=== PATIENT | male | born 1995 | race Hispanic/Latino ===

== ENCOUNTER 2018-01-30 00:03 | Emergency (ER) | payer OTHER ==
--- NOTE | 2018-01-30 00:25 | ED PDOC ---
Arrival/HPI - General Chief Complaint: Chest Pain Time Seen by Provider: 01/30/18 00:20 Historian: Patient - History of Present Illness Narrative History of Present Illness (Text): 01/30/18 00:21 A 22 year old male, with no significant past medical history, presents to the emergency department with a complaint of acute onset substernal, sharp, burning chest discomfort. The patient also notes that his symptoms are associated with tingling sensation in his hands and feeling like he could not catch his breath. He notes that he has had similar episodes in the past without any stimulus. Today's episode occurred while he was at work. He denies fevers, chills, headache, dizziness, dyspnea on exertion, cough, abdominal pain, nausea, vomiting, diarrhea, back pain, neck pain, urinary/bowel changes, illicit drug/ alcohol use, or any other complaint. Time/Duration: 1-3 hours Symptom Onset: Sudden Symptom Course: Unchanged Activities at Onset: Rest, Light Context: Work Past Medical History - Provider Review Nursing Documentation Reviewed: Yes - Infectious Disease Hx of Infectious Diseases: None - Psychiatric Hx Substance Use: No - Anesthesia Hx Anesthesia: No Family/Social History - Physician Review Nursing Documentation Reviewed: Yes Family/Social History: No Known Family HX Smoking Status: Smoker Currrent Status Unknown Hx Alcohol Use: Yes Frequency of alcohol use: Socially Hx Substance Use: No Allergies/Home Meds Allergies/Adverse Reactions: Allergies No Known Allergies Allergy (Verified 01/30/18 00:10) Review of Systems - Physician Review All systems were reviewed & negative as marked: Yes - Review of Systems Constitutional: absent: Fevers, Night Sweats Respiratory: SOB. absent: Cough Cardiovascular: Chest Pain (Sub-sternal chest discomfort). absent: CHRISTIE Gastrointestinal: absent: Abdominal Pain, Stool Changes, Diarrhea, Nausea, Vomiting Genitourinary Male: absent: Frequency, Hematuria Musculoskeletal: absent: Back Pain, Neck Pain Neurological: Other (Hands tingling ). absent: Headache, Dizziness Physical Exam Vital Signs Reviewed: Yes Vital Signs Temp Pulse Resp BP Pulse Ox 01/30/18 02:08 85 18 128/72 100 01/30/18 00:10 97.6 F 88 18 130/74 97 Temperature: Afebrile Blood Pressure: Normal Pulse: Regular Respiratory Rate: Normal Appearance: Positive for: Well-Appearing, Non-Toxic, Comfortable Pain Distress: None Mental Status: Positive for: Alert and Oriented X 3, other (Anxious) - Systems Exam Head: Present: Atraumatic, Normocephalic Pupils: Present: PERRL Extroacular Muscles: Present: EOMI Conjunctiva: Present: Normal Mouth: Present: Moist Mucous Membranes Neck: Present: Normal Range of Motion Respiratory/Chest: Present: Clear to Auscultation, Good Air Exchange, Tender to Palpation (mild chest wall tenderness). No: Respiratory Distress, Accessory Muscle Use Cardiovascular: Present: Regular Rate and Rhythm, Normal S1, S2. No: Murmurs Abdomen: No: Tenderness, Distention, Peritoneal Signs Back: Present: Normal Inspection Upper Extremity: Present: Normal Inspection. No: Cyanosis, Edema Lower Extremity: Present: Normal Inspection. No: Edema Neurological: Present: GCS=15, CN II-XII Intact, Speech Normal Skin: Present: Warm, Dry, Normal Color. No: Rashes Psychiatric: Present: Alert, Oriented x 3, Normal Insight, Normal Concentration Medical Decision Making ED Course and Treatment: 01/30/18 00:31 Impression: A 22 year old male presents to the emergency department for a complaint of substernal chest discomfort and difficulty catching his breath this evening. Plan: -- EKG -- Chest X-ray -- Urinalysis -- Labs -- Reassess and disposition Progress Notes: EKG: Ordered, reviewed, and independently interpreted the EKG. Rate : 85 BPM Rhythm : NSR Interpretation : Early repolarization. Precordial leads in v3-v6, and lead II and AVF. 01/30/18 01:45: Chest X-ray read and interpreted by me shows clear lining, cardiac silhouette within normal limits. No acute pulmonary pathology. On re-evaluation, patient feels better and is in no acute distress. I have discussed the results and plan with the patient, who expresses understanding. Patient in agreement with plan to be discharged home. Patient is stable for discharge. Patient was instructed to follow up with physician or return if symptoms worsen or new concerning symptoms arise. - Lab Interpretations Lab Results: 01/30/18 00:35 01/30/18 00:35 Lab Results 01/30/18 00:50: Urine Opiates Screen Negative, Urine Methadone Screen Negative, Ur Barbiturates Screen Negative, Ur Phencyclidine Scrn Negative, Ur Amphetamines Screen Negative, U Benzodiazepines Scrn Negative, U Oth Cocaine Metabols Negative, U Cannabinoids Screen Negative 01/30/18 00:50: Urine Color Light yellow, Urine Appearance Clear, Urine pH 7.5, Ur Specific [place] 1.010, Urine Protein Trace H, Urine Glucose (UA) Negative, Urine Ketones Trace H, Urine Blood Negative, Urine Nitrate Negative, Urine Bilirubin Negative, Urine Urobilinogen 1.0 H, Ur Leukocyte Esterase Negative, Urine RBC 1 - 3, Urine WBC 0 - 2, Ur Epithelial Cells 1 - 3, Urine Bacteria Mod 01/30/18 00:35: Sodium 142, Potassium 3.9, Chloride 104, Carbon Dioxide 26, Anion Gap 16, BUN 14, Creatinine 1.0, Est GFR ( Amer) > 60, Est GFR (Non- Af Amer) > 60, Random Glucose 108, Calcium 9.7, Magnesium 2.1, Total Bilirubin 0.6, AST 24, ALT 29, Alkaline Phosphatase 72, Lactate Dehydrogenase 354, Total Creatine Kinase 270 H, CK-MB (CK-2) 0.5, CK-MB (CK-2) % Cancelled, Troponin I < 0.01, Total Protein 7.3, Albumin 4.6, Globulin 2.7, Albumin/Globulin Ratio 1.7 01/30/18 00:35: WBC 8.2, RBC 5.29, Hgb 16.4, Hct 45.5, MCV 86.0, MCH 31.0, MCHC 36.0, RDW 13.0, Plt Count 233, MPV 9.6, Gran % 69.0 H, Lymph % (Auto) 24.2, [place] % (Auto) 6.3 H, Eos % (Auto) 0.4 L, Baso % (Auto) 0.1, Gran # 5.65, Lymph # (Auto) 2.0, [place] # (Auto) 0.5, Eos # (Auto) 0.0, Baso # (Auto) 0.01 I have reviewed the lab results: Yes - RAD Interpretation Radiology Orders: 01/30/18 00:21 CHEST PORTABLE [RAD] Stat - EKG Interpretation Interpreted by ED Physician: Yes Type: 12 lead EKG - Medication Orders Current Medication Orders: Discontinued Medications Alprazolam (Xanax) 0.25 mg PO STAT STA PRN Reason: Protocol Stop: 01/30/18 00:37 Last Admin: 01/30/18 01:08 Dose: 0.25 mg - Rupertoibe Statement The provider has reviewed the documentation as recorded by the Anthony Whaley Provider Anthony Attestation: All medical record entries made by the Rupertoibneno were at my direction and personally dictated by me. I have reviewed the chart and agree that the record accurately reflects my personal performance of the history, physical exam, medical decision making, and the department course for this patient. I have also personally directed, reviewed, and agree with the discharge instructions and disposition. Disposition/Present on Arrival - Present on Arrival Any Indicators Present on Arrival: No History of DVT/PE: No History of Uncontrolled Diabetes: No Urinary Catheter: No History of Decub. Ulcer: No History Surgical Site Infection Following: None - Disposition Have Diagnosis and Disposition been Completed?: Yes Diagnosis: Anxiety, Chest pain Disposition: HOME/ ROUTINE Disposition Time: 06:53 Patient Plan: Discharge Condition: GOOD Discharge Instructions (ExitCare): Chest Pain That Is Not Caused by the Heart ( DC), Anxiety, Adult (DC), Chest Pain (ED) Prescriptions: ALPRAZolam [Xanax] 0.25 mg PO TID PRN #15 tab PRN Reason: Anxiety Forms: [facility] [facility] ([place]atian)
[2018-01-30 00:29] VITALS: RESP 18; TEMP 97.6
[2018-01-30 00:59] LABS: BASO # 0.01 K/mm3 (0.0-2.0); BASO % 0.1 % (0.0-3.0); EOS % 0.4 % (1.5-5.0); GRAN # 5.65 (1.4-6.5); HEMOGLOBIN 16.4 g/dL (14.0-18.0); LYMPH % 24.2 % (22.0-35.0); MEAN PLATELET VOLUME 9.6 fl (7.0-11.0); MONO # 0.5 (0.1-0.6); MONO % 6.3 % (1.0-6.0); RBC 5.29 10^6/uL (3.5-6.1); WHITE BLOOD COUNT 8.2 10^3/ul (4.5-11.0)
[2018-01-30 01:08] LABS: ALB/GLOB RATIO 1.7 (1.1-1.8); ALBUMIN 4.6 g/dL (3.0-4.8); ALT/SGPT 29 U/L (7-56); AST/SGOT 24 U/L (17-59); BLOOD UREA NITROGEN 14 mg/dL (7-21); CALCIUM 9.7 mg/dL (8.4-10.5); GFR AFRICAN-AMERICAN > 60; GFR NON-AFRICAN AMERICAN > 60
[2018-01-30 01:17] LABS: TROPONIN I < 0.01 ng/mL
[2018-01-30 01:28] LABS: CK-MB 0.5 ng/mL (0.0-3.6)
[2018-01-30 01:31] LABS: PH,URINE 7.5 (4.7-8.0); URINE BILIRUBIN NEGATIVE (NEGATIVE); URINE BLOOD NEGATIVE (NEGATIVE); URINE GLUCOSE (UA) NEGATIVE (NEGATIVE); URINE LEUKOCYTE ESTERASE NEGATIVE Leu/uL (NEGATIVE); URINE PROTEIN TRACE mg/dL (<30 mg/dL)
[2018-01-30 01:47] LABS: BARBITURATES, UR NEGATIVE (NEGATIVE); BENZODIAZEPINES, UR NEGATIVE (NEGATIVE); OPIATES, UR NEGATIVE (NEGATIVE); PHENCYCLIDINE, UR NEGATIVE (NEGATIVE)
[2018-01-30 01:51] LABS: URINE APPEARANCE CLEAR (CLEAR); URINE COLOR LIGHT YELLOW (YELLOW)
[2018-01-30 01:52] LABS: URINE BACTERIA MOD (NEG); URINE WBC 0 - 2 /hpf (0-6)
[2018-01-30 02:18] VITALS: BP 128/72; PULSE 85; O2SAT 100
--- NOTE | 2018-01-30 09:18 | RAD ---
HISTORY: Chest pain. Abort ugarte COMPARISON: No prior. FINDINGS: LUNGS: No active pulmonary disease. PLEURA: No significant pleural effusion identified, no pneumothorax apparent. CARDIOVASCULAR: Normal. OSSEOUS STRUCTURES: No significant abnormalities. VISUALIZED UPPER ABDOMEN: Normal. OTHER FINDINGS: None. IMPRESSION: No active disease.
--- NOTE | 2018-01-30 22:47 | CARD ---
APPROVED REPORT EKG Measurement Heart [id number] <Conclusion> Normal sinus rhythm Early repolarization Normal ECG
== END 2018-01-30 02:08 | disposition home or self-care (01) ==
LOC: ED 00:03
DX: R07.9 Chest pain, unspecified (principal); F41.9 Anxiety disorder, unspecified

== ENCOUNTER 2018-05-23 22:58 | Emergency (ER) | payer OTHER ==
[2018-05-23 23:03] VITALS: BMI 22.8
[2018-05-23 23:06] VITALS: O2SAT 100
--- NOTE | 2018-05-23 23:37 | ED PDOC ---
Arrival/HPI <You Botello - Last Filed: 05/24/18 00:07> - General Historian: Patient - History of Present Illness Narrative History of Present Illness (Text): 05/23/18 23:34 23yr old male presents today with sudden onset of left sided chest pain radiating into the left shoulder. pt denies trauma or injury. pt states pain started while at a meeting. pt states the pain is achy and constant and radiating into the left shoulder. pt states pain is worse with movement of the left shoulder. pt states when symptoms started the patient was feeling nauseous. pt denies abdominal pain. no vomiting. pt denies back pain. pt states he goes to the gym, last time was 1 week ago. pt denies drug use. pt denies family hx of CA at early age. no cough. pt states a few days ago he got the same pain and was associated with SOB. pt states those symptoms quickly went away but returned again today. pt states he has hx of panic attacks. pt states he think this is a panic attack. pt states he doesnt have shortness of breath, but worsening pain with deep inspiration. no recent travel. no other complaints. <Shayla Knox - Last Filed: 05/24/18 00:38> - General Chief Complaint: Chest Pain Time Seen by Provider: 05/23/18 23:07 Past Medical History - Provider Review Nursing Documentation Reviewed: Yes - Travel History Have you recently traveled outside [place] w/in the past 3 mons?: No - Infectious Disease Hx of Infectious Diseases: None - Psychiatric Hx Substance Use: No - Anesthesia Hx Anesthesia: No <Shayla Knox - Last Filed: 05/24/18 00:38> Family/Social History - Physician Review Nursing Documentation Reviewed: Yes Family/Social History: No Known Family HX. denies: Hypertension, CAD/CA Smoking Status: Smoker Currrent Status Unknown Hx Alcohol Use: Yes Hx Substance Use: No <Shayla Knox - Last Filed: 05/24/18 00:38> Allergies/Home Meds <You Botello - Last Filed: 05/24/18 00:07> <Shayla Knox - Last Filed: 05/24/18 00:38> Allergies/Adverse Reactions: Allergies No Known Allergies Allergy (Verified 05/23/18 23:03) Review of Systems - Review of Systems Constitutional: absent: Fatigue, Fevers Respiratory: SOB. absent: Cough Cardiovascular: Chest Pain. absent: Palpitations Gastrointestinal: absent: Abdominal Pain, Nausea, Vomiting Genitourinary Male: absent: Dysuria, Frequency, Hematuria, Urinary Output Changes Musculoskeletal: Arthralgias (left shoulder pain). absent: Back Pain, Neck Pain Skin: absent: Rash, Pruritis Neurological: absent: Headache, Dizziness Psychiatric: absent: Anxiety, Depression <Shayla Knox - Last Filed: 05/24/18 00:38> Physical Exam Vital Signs Temp Pulse Resp BP Pulse Ox 05/23/18 23:03 98.2 F 76 18 125/74 100 <You Botello - Last Filed: 05/24/18 00:07> Vital Signs Reviewed: Yes Vital Signs Temp Pulse Resp BP Pulse Ox 05/23/18 23:03 98.2 F 76 18 125/74 100 Temperature: Afebrile Blood Pressure: Normal Pulse: Regular Respiratory Rate: Normal Appearance: Positive for: Well-Appearing, Non-Toxic, Comfortable Pain Distress: None Mental Status: Positive for: Alert and Oriented X 3 - Systems Exam Head: Present: Atraumatic Mouth: Present: Moist Mucous Membranes Neck: Present: Normal Range of Motion Respiratory/Chest: Present: Clear to Auscultation, Good Air Exchange, Tender to Palpation (+ minimal ttp over left pectoralis muscle.). No: Respiratory Distress, Accessory Muscle Use Cardiovascular: Present: Regular Rate and Rhythm, Normal S1, S2. No: Murmurs Abdomen: No: Tenderness, Distention, Rebound, Guarding Back: Present: Normal Inspection. No: Midline Tenderness, Paraspinal Tenderness Upper Extremity: Present: Normal ROM Lower Extremity: Present: Normal ROM. No: Edema, CALF TENDERNESS Neurological: Present: GCS=15, Speech Normal Skin: Present: Warm, Dry, Normal Color. No: Rashes Psychiatric: Present: Alert, Oriented x 3 <Shayla Knox - Last Filed: 05/24/18 00:38> Medical Decision Making - Lab Interpretations Lab Results: 05/23/18 23:28 05/23/18 23:28 Lab Results 05/23/18 23:28: Sodium 139, Potassium 3.8, Chloride 103, Carbon Dioxide 25, Anion Gap 14, BUN 18, Creatinine 1.0, Est GFR ( Amer) > 60, Est GFR (Non- Af Amer) > 60, Random Glucose 110, Calcium 9.6, Magnesium 1.9, Total Bilirubin 0.5, AST 46, ALT 26, Alkaline Phosphatase 66, Lactate Dehydrogenase 506, Total Creatine Kinase 142, Troponin I Pending, Total Protein 7.7, Albumin 4.6, Globul in 3.2, Albumin/Globulin Ratio 1.4 05/23/18 23:28: PT 12.5, INR 1.09, APTT 26.8, D-Dimer, Quantitative < 200 05/23/18 23:28: WBC 10.4 D, RBC 5.17, Hgb 15.8, Hct 45.5, MCV 88.0, MCH 30.6, MCHC 34.7, RDW 13.1, Plt Count 228, MPV 9.7, Gran % 63.3, Lymph % (Auto) 27.7, [place] % (Auto) 4.8, Eos % (Auto) 4.1, Baso % (Auto) 0.1, Gran # 6.59 H, Lymph # (Auto) 2.9, [place] # (Auto) 0.5, Eos # (Auto) 0.4, Baso # (Auto) 0.01 - RAD Interpretation Radiology Orders: 05/23/18 23:08 CHEST PORTABLE [RAD] Stat - Medication Orders Current Medication Orders: Discontinued Medications Famotidine (Pepcid) 20 mg IVP STAT STA Stop: 05/23/18 23:34 Ketorolac Tromethamine (Toradol) 30 mg IVP STAT STA Stop: 05/23/18 23:34 <You Botello - Last Filed: 05/24/18 00:07> ED Course and Treatment: 05/23/18 23:38 pt with chest pain ; vitals stable pt with palpable left sided chest tenderness; worse with ROM of shoulder. cbc; wnl cmp; wnl ddimer; wnl trop: wnl ekg; sinus rhythm with 1st degree av block, early repolarization. qtc 389 cxr: wnl pt reassessment; pt states pain as resolved prior to medications being given. toradol and pepcid cancelled. i discussed all results in depth with patient. i advised f/u with PMd and pulpwood contractor within the next 2 days. I advised immediate return if symptoms worsen,persist or if new symptoms develop. pt was advised to quit smoking. Patient verbalizes understanding of discharge instructions and need for immediate followup. all aspects of this case were discussed the attending of record. impression; chest pain motrin every 6 hours as needed for pain follow up with the primary care physician tomorrow follow up with the pulpwood contractor within the next 2 days. return if symptoms worsen,persist or if new symptoms develop. Reassessment Condition: Re-examined, Improved - Lab Interpretations I have reviewed the lab results: Yes - RAD Interpretation Radiology Orders: 05/23/18 23:08 CHEST PORTABLE [RAD] Stat <Shayla Knox - Last Filed: 05/24/18 00:38> - PA / SOCIAL SCIENCE TEACHER / Resident Statement / has reviewed & agrees with the documentation as recorded. <You Botello - Last Filed: 05/24/18 00:07> Disposition/Present on Arrival <You Botello - Last Filed: 05/24/18 00:07> - Present on Arrival Any Indicators Present on Arrival: No History of DVT/PE: No History of Uncontrolled Diabetes: No Urinary Catheter: No History of Decub. Ulcer: No History Surgical Site Infection Following: None - Disposition Have Diagnosis and Disposition been Completed?: Yes Disposition Time: 00:22 Patient Plan: Discharge <Shayla Knox - Last Filed: 05/24/18 00:38> - Disposition Diagnosis: Chest pain Disposition: HOME/ ROUTINE Patient Problems: Current Active Problems Problem Status Onset Chest pain Acute Condition: GOOD Discharge Instructions (ExitCare): Chest Pain (ED) Additional Instructions: motrin every 6 hours as needed for pain follow up with the primary care physician tomorrow follow up with the pulpwood contractor within the next 2 days. return if symptoms worsen,persist or if new symptoms develop. Referrals: Tamela Colón MD [Staff Provider] - Follow up with primary Kya Staton MD [Medical Doctor] - Follow up with primary [facility] [Outside] - Follow up with primary Forms: [facility] [facility] ([place]ian), WORK NOTE
[2018-05-23 23:45] LABS: BASO # 0.01 K/mm3 (0.0-2.0); BASO % 0.1 % (0.0-3.0); EOS # 0.4 (0.0-0.7); EOS % 4.1 % (1.5-5.0); GRAN # 6.59 (1.4-6.5); GRAN % 63.3 % (50.0-68.0); HEMOGLOBIN 15.8 g/dL (14.0-18.0); LYMPH # 2.9 (1.2-3.4); LYMPH % 27.7 % (22.0-35.0); MEAN CORPUSCULAR HEMOGLOBIN 30.6 pg (25.0-35.0); MEAN CORPUSCULAR HGB CONC 34.7 g/dl (31.0-37.0); MEAN PLATELET VOLUME 9.7 fl (7.0-11.0); MONO # 0.5 (0.1-0.6); MONO % 4.8 % (1.0-6.0); RBC 5.17 10^6/uL (3.5-6.1); RED CELL DISTRIBUTION WIDTH 13.1 % (11.5-14.5); WHITE BLOOD COUNT 10.4 10^3/ul (4.5-11.0)
[2018-05-23 23:52] LABS: INR 1.09; PARTIAL THROMBOPLASTIN TIME 26.8 Seconds (25.1-36.5); PROTHROMBIN TIME 12.5 SECONDS (9.4-12.5)
[2018-05-23 23:54] LABS: D DIMER < 200 ng/mlDDU (0-243)
[2018-05-23 23:58] LABS: BLOOD UREA NITROGEN 18 mg/dL (7-21); CALCIUM 9.6 mg/dL (8.4-10.5); GFR NON-AFRICAN AMERICAN > 60
[2018-05-24 00:06] LABS: ALB/GLOB RATIO 1.4 (1.1-1.8); ALBUMIN 4.6 g/dL (3.0-4.8); ALT/SGPT 26 U/L (7-56); AST/SGOT 46 U/L (17-59)
[2018-05-24 00:12] LABS: TROPONIN I < 0.01 ng/mL
[2018-05-24 00:19] LABS: URINE BILIRUBIN NEGATIVE (NEGATIVE); URINE BLOOD NEGATIVE (NEGATIVE); URINE GLUCOSE (UA) NEGATIVE (NEGATIVE); URINE LEUKOCYTE ESTERASE NEGATIVE Leu/uL (NEGATIVE); URINE PROTEIN NEGATIVE mg/dL (<30 mg/dL); URINE UROBILINOGEN 0.2 E.U./dL (<1 E.U./dL)
[2018-05-24 00:24] LABS: URINE APPEARANCE CLEAR (CLEAR); URINE COLOR YELLOW (YELLOW)
[2018-05-24 01:00] LABS: BARBITURATES, UR NEGATIVE (NEGATIVE); BENZODIAZEPINES, UR NEGATIVE (NEGATIVE); OPIATES, UR NEGATIVE (NEGATIVE); PHENCYCLIDINE, UR NEGATIVE (NEGATIVE)
[2018-05-24 01:40] VITALS: BP 135/64; PULSE 72; RESP 16; TEMP 98.4
--- NOTE | 2018-05-24 09:16 | RAD ---
Date of service: 05/23/2018 HISTORY: cp COMPARISON: Comparison chest dated 01/30/2018 FINDINGS: LUNGS: No acute consolidation.. There appears to be a few tiny nodular densities right lateral upper lobe which could represent a few tiny granulomata. PLEURA: No significant pleural effusion identified, no pneumothorax apparent. CARDIOVASCULAR: Normal. No evidence of aortic atherosclerotic calcification OSSEOUS STRUCTURES: No significant abnormalities. VISUALIZED UPPER ABDOMEN: Normal. OTHER FINDINGS: None. IMPRESSION: No acute consolidation.. There appears to be a few tiny nodular densities right lateral upper lobe which could represent a few tiny granulomata.
--- NOTE | 2018-05-24 14:55 | CARD ---
APPROVED REPORT Date of service: 05/23/2018 EKG Measurement Heart [id number] <Conclusion> Norml sinus rhythm Early repolarization Otherwise normal ECG
== END 2018-05-24 00:59 | disposition home or self-care (01) ==
LOC: ED 22:58
DX: R07.9 Chest pain, unspecified (principal)